=== PATIENT | female | born 1995 | race Caucasian/White ===

== ENCOUNTER 2017-06-18 10:24 | Inpatient (IN) | payer MEDICAID ==
[~2017-06-18] VITALS: Ht 157.5 cm; Wt 82.2 kg
[~2017-06-18 10:24] MED LIST: DOCO200C3 PO; FAMO-79 PO
[2017-06-18] MEDS ORDERED: LACTATED RINGERS 1,000 ML IV SCH ×2 (12:07→16:00)
[2017-06-18] MEDS ORDERED: OXYTOCIN 30U/ 0.9% NaCL 500ML 500 ML IV SCH (12:07)
[2017-06-18 12:30] LABS: HEMATOCRIT 39.3 % (34.6-47.8); HEMOGLOBIN 13.4 g/dL (11.7-16.4); WHITE BLOOD COUNT 16.9 x10^3/uL (3.4-10)
[2017-06-18] MEDS ORDERED: LACTATED RINGERS 1,000 ML IVBOLUS ONE (12:30)
[2017-06-18] MEDS ORDERED: SODIUM CITRATE/CITRIC ACID 30 ML UDC PO ONE (12:30)
[2017-06-18] MEDS ORDERED: METOCLOPRAMIDE 5 MG/ML, 2ML IV ONE (12:30)
[2017-06-18] MEDS ORDERED: PLEASE ENTER HEIGHT AND WEIGHT MC SCH (12:30)
[2017-06-18 13:08] VITALS: BP 114/57
[2017-06-18] MEDS ORDERED: morphine SULFATE/PF 1 MG/ML, 10ML ONE (13:52)
[2017-06-18] MEDS ORDERED: NEWBORN KIT ONE (14:02)
[2017-06-18] MEDS: OXYTOCIN 30U/ 0.9% NaCL 500ML 500 ML IV SCH (14:55)
[2017-06-18] MEDS ORDERED: DOCUSATE 100 MG CAPSULE PO PRN (15:00)
[2017-06-18] MEDS ORDERED: OXYcodone/APAP 5/325MG TABLET PO PRN ×2 (15:00)
[2017-06-18] MEDS ORDERED: SIMETHICONE 80 MG CHEW TAB PO PRN (15:00)
[2017-06-18] MEDS ORDERED: ONDANSETRON 2MG/ML, 2ML IV PRN (15:00)
[2017-06-18] MEDS ORDERED: CALCIUM CARBONATE 500 MG TAB.CHEW PO PRN (15:00)
[2017-06-18] MEDS ORDERED: METOCLOPRAMIDE 5 MG/ML, 2ML IV PRN (15:00)
[2017-06-18] MEDS ORDERED: ACETAMINOPHEN 325 MG TABLET PO PRN (15:00)
[2017-06-18] MEDS ORDERED: OXYTOCIN 10 UNITS/ML, 1ML ONE (15:22)
[2017-06-18] MEDS ORDERED: EPHEDRINE 50 MG/ML, 1ML ONE (15:22)
[2017-06-18] MEDS ORDERED: CEFAZOLIN 1,000 MG ONE (15:22)
[2017-06-18] MEDS ORDERED: OXYTOCIN 30U/ 0.9% NaCL 500ML 500 ML ONE (16:02)
[2017-06-18] MEDS ORDERED: ONDANSETRON 2MG/ML, 2ML ONE (16:48)
[2017-06-18] MEDS: LACTATED RINGERS 1,000 ML IV SCH (16:57)
[2017-06-18] MEDS ORDERED: DIPHENHYDRAMINE 50 MG/ML, 1ML ONE (17:18)
[2017-06-18] MEDS ORDERED: DIPHENHYDRAMINE 50 MG/ML, 1ML IVPush PRN (17:30)
[2017-06-18 17:39] VITALS: BP 103/63
[2017-06-18] MEDS: KETOROLAC 30 MG/1 ML IV SCH (17:58)
[2017-06-18] MEDS ORDERED: NALOXONE 0.4 MG/ML, 1ML IV PRN (18:30)
[2017-06-18] MEDS ORDERED: HYDROmorphone 1 MG/ML, 1ML IVPush PRN ×2 (18:30)
[2017-06-18 19:30] VITALS: BP 93/53
[2017-06-19] MEDS: KETOROLAC 30 MG/1 ML IV SCH ×3 (00:08→13:18)
[2017-06-19 00:11] VITALS: BP 100/53
[2017-06-19] MEDS: OXYTOCIN 30U/ 0.9% NaCL 500ML 500 ML IV SCH ×2 (00:55→10:55)
[2017-06-19] MEDS: LACTATED RINGERS 1,000 ML IV SCH ×2 (02:00→12:00)
[2017-06-19 07:02] LABS: HEMATOCRIT 36.8 % (34.6-47.8); HEMOGLOBIN 12.3 g/dL (11.7-16.4); WHITE BLOOD COUNT 17.4 x10^3/uL (3.4-10)
[2017-06-19] MEDS ORDERED: PRENATAL VIT/IRON/FA 1 EACH TABLET ONE (07:43)
[2017-06-19 07:50] VITALS: BP 98/50
[2017-06-19] MEDS ORDERED: PRENATAL VIT/IRON/FA 1 EACH TABLET PO SCH (09:00)
[2017-06-19] MEDS ORDERED: PNEUMOCOCCAL 23 VACCINE IM-VACC ONE (11:30)
[2017-06-19 12:05] VITALS: BP 97/62
[2017-06-19] MEDS ORDERED: IBUP-1222 PO (17:42)
[2017-06-19] MEDS ORDERED: HYDR-3240 PO (17:44)
[2017-06-20] MEDS ORDERED: IBUPROFEN 600 MG TABLET PO PRN (16:00)
== END 2017-06-19 18:05 | disposition home or self-care (01) | DRG 766 ==
LOC: LDOP 10:24 → LDIP 12:07 → 2NW 17:31
PROVIDERS: ADMIT Obstetrics & Gynecology; ATTEND Obstetrics & Gynecology
PROC: 10D00Z1 Extraction of Products of Conception, Low, Open Approach (ICD-10-PCS; principal; 2017-06-18)
PROC: 0UT70ZZ Resection of Bilateral Fallopian Tubes, Open Approach (ICD-10-PCS; 2017-06-18)
DX: O34.219 Maternal care for unspecified type scar from previous cesarean delivery (principal); F17.210 Nicotine dependence, cigarettes, uncomplicated; Z37.0 Single live birth; O99.334 Smoking (tobacco) complicating childbirth; Z30.2 Encounter for sterilization; Z3A.38 38 weeks gestation of pregnancy
CPT/HCPCS: 36415; 85025; 86850; 86900; 88302; 90732; J0690; J1885; J2274; J2405; J1200; J2590; J2765; J7120